=== PATIENT | female | born 1990 | race Caucasian/White ===

== ENCOUNTER 2017-08-01 03:00 | Emergency (ER) | payer SELFPAY ==
[~2017-08-01] VITALS: Ht 160 cm; Wt 87.1 kg
[~2017-08-01 03:00] MED LIST: AMOX-362 PO; CEPH500C24 PO; CITA-156 PO; HYDR-4228 PO; HYDR-4309 PO; IBUP800T37 PO; LEVO25TA61 PO; LEVO50TA86 PO; PER PO; TRAZ-156 PO
--- NOTE | 2017-08-01 03:04 | ER Report ---
History and Physical Time Seen By MD: 03:04 HPI/ROS CHIEF COMPLAINT: Fever, cough, difficulty breathing HISTORY OF PRESENT ILLNESS: 27-year-old female presents ambulatory to the ER complaining of difficulty breathing. She's been sick for 3 days now. She's been having a deep dry cough. She denies any sputum production. She has no ear pain. She's had some nausea but no vomiting. She notes some fevers. She tried a beat her own inhaler without improvement. REVIEW OF SYSTEMS: Respiratory: As above Cardiovascular: No chest pain, no palpitations. Gastrointestinal: No vomiting, no abdominal pain. Musculoskeletal: No back pain. Allergies: Coded Allergies: No Known Drug Allergies (Unverified , 07/05/16) Home Meds Active Scripts Albuterol Sulfate 90 Mcg/Act (PROAIR HFA 90 MCG/ACT) 8.5 Gm Hfa.aer.ad, 2 PUFF IH Q4-6H Y for asthma symptoms, #1 INHALER Prov:JU MARIE DO 08/01/17 Oxycodone Hcl/Acetaminophen (PERCOCET 5-325 MG TABLET) 1 Each Tablet, 1 EACH PO Q4-6H Y for reduce pain or suppress cough, #10 Prov:JU MARIE DO 08/01/17 Promethazine Hcl (PROMETHAZINE HCL) 25 Mg Tablet, 25 MG PO Q8H Y for reduce nausea and cough, #10 TAB Prov:JU MARIE DO 08/01/17 Reported Medications Citalopram Hydrobromide (CELEXA) 20 Mg Tablet, 20 MG PO QDAY, #5 TAB 03/28/16 Levothyroxine Sodium (LEVOTHYROXINE SODIUM) 50 Mcg Tablet, 75 MCG PO QDAY, TAB 03/28/16 Discontinued Reported Medications Trazodone Hcl (TRAZODONE HCL) 50 Mg Tablet, 50 MG PO QHS 03/28/16 Reviewed Nurses Notes: Yes Old Medical Records Reviewed: Yes Hx Smoking: Yes Smoking Status: Current: Every Day Smoker, Heavy Tobacco Smoker Exposure to Second Hand Smoke?: No Hx Substance Use Disorder: No Hx Alcohol Use: Yes (sober x 1year) Constitutional Vital Sign - Last 24 Hours 08/01/17 08/01/17 08/01/17 08/01/17 03:00 03:05 03:05 03:30 Temp 99.2 Pulse ??? 86 81 Resp 84 B/P (MAP) 101/72 (82) 94/83 (87) Pulse Ox 95 98 08/01/17 08/01/17 08/01/17 08/01/17 03:40 03:40 03:44 04:00 Pulse 77 78 77 Resp 18 18 B/P (MAP) 101/65 (77) Pulse Ox 98 96 O2 Delivery Room Air 08/01/17 04:30 Pulse 65 B/P (MAP) 100/65 (77) Pulse Ox 96 Physical Exam Vital signs stable, low-grade fever 99.2., pulse ox normal General Appearance: The patient is alert, has no immediate need for airway protection and no current signs of toxicity. Mild distress HEENT: Pupils equal and round no injection. TMs normal, oropharynx with moderate erythema, no exudate or petechiae, Respiratory: Chest is non tender, lungs are clear to auscultation. Faint extra [place], wheezing, no Rales Cardiac: regular rate and rhythm Gastrointestinal: Abdomen is soft and non tender, no masses, bowel sounds normal. Musculoskeletal: Neck: Neck is supple and non tender. No lymphadenopathy, no meningismus Extremities have full range of motion and are non tender. Skin: No rashes or lesions. DIFFERENTIAL DIAGNOSIS: After history and physical exam differential diagnosis was considered for adult fever including but not limited to viral syndromes including influenza, urinary tract infection, rhonchi this, sinus infection, otitis media, asthma exacerbation, pneumonia and sepsis. Medical Decision Making Data Points Laboratory Hematology Test 08/01/17 03:30 Influenza Virus Type A (PCR) Negative (NEGATIVE) Influenza Virus Type B (PCR) Negative (NEGATIVE) Chemistry Test 08/01/17 03:30 Influenza Virus Type A (PCR) Negative (NEGATIVE) Influenza Virus Type B (PCR) Negative (NEGATIVE) ED Course/Re-evaluation ED Course Patient was admitted to an examination room. H&P was done. The differential diagnoses was considered. On clinical examination. Patient has mild extremity wheezing. She received an albuterol nebulizer treatment. She reports improve of her breathing. She is treated with Decadron 8 mg by mouth. She's given medication for symptomatically management Percocet to suppress her cough, and Phenergan to dry up her cough. She is advised to follow-up with her primary care if unimproved in 3-5 days. Decision to Disposition Date: Aug 01, 2017 Decision to Disposition Time: 04:33 Depart Departure Latest Vital Signs Vital Signs Date Time Temp Pulse Resp B/P (MAP) Pulse Ox O2 Delivery O2 Flow Rate FiO2 08/01/17 04:30 65 100/65 (77) 96 08/01/17 03:44 18 08/01/17 03:40 Room Air 08/01/17 03:05 99.2 Impression: Primary Impression: Viral URI Additional Impression: Mild asthma exacerbation Condition: Improved Disposition: HOME OR SELF-CARE New Scripts Albuterol Sulfate 90 Mcg/Act (PROAIR HFA 90 MCG/ACT) 8.5 Gm Hfa.aer.ad 2 PUFF IH Q4-6H Y for asthma symptoms, #1 INHALER Prov: JU MARIE DO 08/01/17 Oxycodone Hcl/Acetaminophen (PERCOCET 5-325 MG TABLET) 1 Each Tablet 1 EACH PO Q4-6H Y for reduce pain or suppress cough, #10 Prov: JU MARIE DO 08/01/17 Promethazine Hcl (PROMETHAZINE HCL) 25 Mg Tablet 25 MG PO Q8H Y for reduce nausea and cough, #10 TAB Prov: JU MARIE DO 08/01/17 Patient Instructions: Upper Respiratory Infection (ED) Additional Instructions: Use DayQuil and NyQuil as needed for symptom relief Follow-up with your primary care if unimproved in 3-5 days. Problem Qualifiers JU MARIE DO Aug 01, 2017 03:04
[2017-08-01] MEDS ORDERED: ALBUTEROL 2.5 MG/3 ML NEB NEB ONE (03:20)
[2017-08-01 04:30] VITALS: BP 100/65
[2017-08-01] MEDS ORDERED: OXYC-865 PO (04:35)
[2017-08-01] MEDS ORDERED: PROM-110 PO (04:35)
[2017-08-01] MEDS ORDERED: ALBU8.5H IH (04:38)
[2017-08-01] MEDS ORDERED: PROMETHAZINE HCL 25 MG TAB TH 2 TAB/BOTTLE PO ONE (04:40)
[2017-08-01] MEDS ORDERED: DEXAMETHASONE 4 MG TAB PO ONE (04:40)
[2017-08-01] MEDS ORDERED: oxyCODONE/ACETAMIN 5/325MG TH 2 TAB/BOTTLE PO ONE (04:40)
== END 2017-08-01 04:47 | disposition home or self-care (01) ==
LOC: ER 03:01
DX: J06.9 Acute upper respiratory infection, unspecified (principal); J45.901 Unspecified asthma with (acute) exacerbation
CPT/HCPCS: 87502; 94640; 99282; J7613; J8540

== ENCOUNTER → 2018-03-26 | Outpatient (REF) ==
[~2018-03-26] MED LIST changes: +ALBU8.5H IH; +OXYC-865 PO; +PROM-110 PO; -TRAZ-156 PO; +TRAZ50TA34 PO
--- NOTE | 2018-03-26 15:59 | RADIOLOGY IMAGING REPORT ---
FACILITY: [facility] - [place], [place] PATIENT NAME: Inna Dillon : 1990 MR: [id number]: [id number] EXAM DATE: [id number] ORDERING PHYSICIAN: JOAO VERNON TECHNOLOGIST: Location: [facility] - [place], [place] Patient: Inna Dillon : 1990 Visit/Account:[id number] Date of Sevice: 03/26/2018 Exam type: LUMBAR SPINE 2 OR 3 VIEW History: Low back pain, leg pain Comparison: None. Findings: There are five nonrib-bearing lumbar-type vertebral bodies present. There is no evidence of acute fr actures. There suggestion of pars defects at L5 although oblique views were not obtained. There sug gestion of mild disc space narrowing at T11-12 and T12-L1. There is dense sclerosis along the inferior aspect the left SI joint this could be related to prior t rauma, infectious etiologies such as pyogenic septic arthritis, tuberculosis, brucellosis less likely neoplastic process. Sacroiliitis seems less likely due to the unilateral nature although not totall y excluded IMPRESSION: 1. There suggestion of bilateral pars defects at L5 although not ideally characterized due to the la ck of oblique views There is unilateral sclerosis along the inferior aspect of the left SI joint please see above discuss ion Report Dictated By: Little Velasco MD at 03/26/2018 3:48 PM Report E-Signed By: Little Velasco MD at 03/26/2018 3:55 PM WSN:[email or web address]
== END ==
LOC: RAD 14:59
PROVIDERS: ATTEND Orthopaedic Surgery Orthopaedic Surgery of the Spine
DX: M54.5 Low back pain (principal)
CPT/HCPCS: 72100

== ENCOUNTER → 2018-06-19 | Outpatient (REF) ==
[~2018-06-19] MED LIST changes: -HYDR-4309 PO; +HYDR-653 PO
--- NOTE | 2018-06-19 16:00 | RADIOLOGY IMAGING REPORT ---
FACILITY: [facility] [place]IENT NAME: Inna Dillon : 1990 MR: [id number] V: [id number] EXAM DATE: ORDERING PHYSICIAN: CHETAN ROSARIO TECHNOLOGIST: Location: [facility] - [place] Patient: Inna Dillon : 1990 Visit/Account:[id number] Date of Sevice: 06/19/2018 Exam type: WRIST RIGHT 2 VIEW History: Right wrist pain, no known injury Comparison: None. Findings: Two views of the right breast were submitted. On the lateral view there appears to be mild degenerat kali changes involving the carpal metacarpal articulations although not as well appreciated on the PA view. No gross evidence of acute fracture or dislocation. The radiocarpal joint appears preserved. IMPRESSION: 1. On the lateral view there appears be mild degenerative changes involving the carpal metacarpal ar ticulations although not well appreciated on the PA view there for the exact location is somewhat dif ficult. If patient's symptoms persist an oblique view of the right wrist or cross-sectional imaging may be helpful Report Dictated By: Little Velasco MD at 06/19/2018 3:53 PM Report E-Signed By: Little Velasco MD at 06/19/2018 3:56 PM WSN:[email or web address]
== END ==
LOC: RAD 14:02
PROVIDERS: ATTEND Nurse Practitioner
DX: M25.531 Pain in right wrist (principal)

== ENCOUNTER 2018-07-09 10:54 | Emergency (ER) | payer SELFPAY ==
[2018-07-09] MEDS ORDERED: CLON-333 PO (11:18)
[2018-07-09] MEDS ORDERED: TRAZ50TA34 PO (11:18)
--- NOTE | 2018-07-09 11:18 | ER Report ---
History and Physical Time Seen By MD: 11:18 Hx. of Stated Complaint: PATIENT REPORTS THAT SHE AND HER BOYFRIEND WERE HAVING ANAL INTERCOURSE LAST WEEK. SHE IS NOW REPORTING RECTAL PAIN AND SOME BLEEDING WHEN SHE USES TOILET PAPER HPI/ROS Had anal intercourse one week ago without lubrication. Pain in her buttocks/anus since. Has had anal intercourse previously. Remainder of the 14 system rev: Yes Allergies: Coded Allergies: No Known Drug Allergies (Unverified , 07/05/16) Home Meds Reported Medications Trazodone Hcl (TRAZODONE HCL) 50 Mg Tablet, 50 MG PO QHS 07/09/18 Clonazepam (CLONAZEPAM) 1 Mg Tablet, 1 MG PO QDAY, #6 TAB 07/09/18 Citalopram Hydrobromide (CELEXA) 20 Mg Tablet, 20 MG PO QDAY, #5 TAB 03/28/16 Levothyroxine Sodium (LEVOTHYROXINE SODIUM) 50 Mcg Tablet, 100 MCG PO QDAY, TAB 03/28/16 Discontinued Scripts Albuterol Sulfate 90 Mcg/Act (PROAIR HFA 90 MCG/ACT) 8.5 Gm Hfa.aer.ad, 2 PUFF IH Q4-6H PRN for asthma symptoms, #1 INHALER Prov:JU MARIE Johnny DO 08/01/17 Oxycodone Hcl/Acetaminophen (PERCOCET 5-325 MG TABLET) 1 Each Tablet, 1 EACH PO Q4-6H PRN for reduce pain or suppress cough, #10 Prov:QUIQUE MARIECarson Turner DO 08/01/17 Promethazine Hcl (PROMETHAZINE HCL) 25 Mg Tablet, 25 MG PO Q8H PRN for reduce nausea and cough, #10 TAB Prov:JU MARIE Johnny DO 08/01/17 Reviewed Nurses Notes: Yes Old Medical Records Reviewed: Yes Hx Smoking: Yes Smoking Status: Current: Every Day Smoker, Heavy Tobacco Smoker Exposure to Second Hand Smoke?: No Hx Substance Use Disorder: No Hx Alcohol Use: Yes (sober x 1year) Constitutional Vital Sign - Last 24 Hours 07/09/18 11:12 Temp 97.9 Pulse 82 Resp 20 B/P (MAP) 111/73 Pulse Ox 94 O2 Delivery Room Air Physical Exam General Appearance: The patient is alert, has no immediate need for airway protection and no current signs of toxicity. Gastrointestinal: Abdomen is soft and non tender, no masses, bowel sounds normal. Skin: No rashes or lesions. Rectal: folliculitis, no tears or hemorrhoids, no prolapse Medical Decision Making ED Course/Re-evaluation ED Course Cellulitis after having anal intercourse without lubrication one week ago. No tears or prolapse. No evidence of STD. Will give abx and PCM follow up. Decision to Disposition Date: Jul 09, 2018 Decision to Disposition Time: 11:55 Depart Departure Latest Vital Signs Vital Signs Date Time Temp Pulse Resp B/P (MAP) Pulse Ox O2 Delivery O2 Flow Rate FiO2 07/09/18 11:12 97.9 82 20 111/73 94 Room Air Impression: Primary Impression: Cellulitis Condition: Improved Disposition: HOME OR SELF-CARE New Scripts Cephalexin 500 Mg Tab (KEFLEX 500 MG TAB) 500 Mg Tablet 500 MG PO Q12H for 7 Days, #14 TAB Prov: ANNI ROSA MD 07/09/18 Sulfamethoxazole/Trimet 800-160 Mg Tab (BACTRIM DS TABLET) 1 Each Tablet 1 TAB PO Q12H for 7 Days, #14 TAB Prov: ANNI ROSA MD 07/09/18 Patient Instructions: Cellulitis (ED) Problem Qualifiers Primary Impression: Cellulitis Site of cellulitis: buttock Qualified Codes: L03.317 - Cellulitis of buttock ANNI ROSA MD Jul 09, 2018 11:18
[2018-07-09] MEDS ORDERED: CEPHALEXIN MONO 500 MG CAP PO ONE (11:30)
[2018-07-09] MEDS ORDERED: TRIMETH/SULFA DS 160-800MG TAB PO ONE (11:30)
[2018-07-09] MEDS ORDERED: CEPH500T7 PO (11:57)
[2018-07-09] MEDS ORDERED: SULF-198 PO (11:57)
[2018-07-09 12:04] VITALS: BP 116/79
== END 2018-07-09 12:05 | disposition home or self-care (01) ==
LOC: ER 11:19
DX: L03.317 Cellulitis of buttock (principal)
CPT/HCPCS: 99283

== ENCOUNTER 2018-11-30 16:03 | Emergency (ER) | payer MEDICAID ==
[~2018-11-30 16:03] MED LIST changes: +CEPH500T7 PO; +CLON-333 PO; +SULF-198 PO
[2018-11-30] MEDS ORDERED: RANI-366 PO (16:16)
[2018-11-30 16:30] VITALS: BP 101/63
--- NOTE | 2018-11-30 16:43 | ER Report ---
History and Physical Time Seen By MD: 16:20 Hx. of Stated Complaint: insect bite HPI/ROS CHIEF COMPLAINT: Leg swelling and pain HISTORY OF PRESENT ILLNESS: 28-year-old female at 19 weeks presents with sudden onset of focal swelling to her right proximal lateral calf. Patient states she was reaching up on cupboards, on step stool when she felt like she was bitten or provoked by something and developed sudden pain, itching, s welling. She did not notice any insect, does not think she bumped her leg against anything, does not note any injury, and has not had any similar issues. She now notes swelling and pain that has been approximately the same size of the started just before arrival. Patient has no family history of VT E, has not had any swelling in lower extremities, chest pain, trouble breathing. Of note, over the last few days she has developed intermittent paresthesias in the right lower extremity that her OB states is associated with . Patient has not had dysuria, no bleeding or history of significant bruising REVIEW OF SYSTEMS: Respiratory: No cough, no dyspnea. Cardiovascular: No chest pain, no palpitations. Gastrointestinal: No vomiting, no abdominal pain. Musculoskeletal: No back pain. Remainder of the 14 system rev: Yes Allergies: Coded Allergies: sulfamethoxazole (Verified Allergy, Intermediate, rash, 11/30/18) trimethoprim (Verified Allergy, Intermediate, rash, 11/30/18) Home Meds Reported Medications Ranitidine Hcl (ZANTAC) 150 Mg Tablet, 150 MG PO BID, TAB 11/30/18 Levothyroxine Sodium (LEVOTHYROXINE SODIUM) 50 Mcg Tablet, 100 MCG PO QDAY, TAB 03/28/16 Discontinued Reported Medications Trazodone Hcl (TRAZODONE HCL) 50 Mg Tablet, 50 MG PO QHS 07/09/18 Clonazepam (CLONAZEPAM) 1 Mg Tablet, 1 MG PO QDAY, #6 TAB 07/09/18 Citalopram Hydrobromide (CELEXA) 20 Mg Tablet, 20 MG PO QDAY, #5 TAB 03/28/16 Discontinued Scripts Cephalexin 500 Mg Tab (KEFLEX 500 MG TAB) 500 Mg Tablet, 500 MG PO Q12H for 7 Days, #14 TAB Prov:ANNI ROSA MD 07/09/18 Sulfamethoxazole/Trimet 800-160 Mg Tab (BACTRIM DS TABLET) 1 Each Tablet, 1 TAB PO Q12H for 7 Days, #14 TAB Prov:ANNI ROAS MD 07/09/18 Reviewed Nurses Notes: Yes Hx Smoking: Yes Smoking Status: Current: Every Day Smoker, Heavy Tobacco Smoker Exposure to Second Hand Smoke?: No Hx Substance Use Disorder: No Hx Alcohol Use: Yes (sober x 1year) Constitutional Vital Sign - Last 24 Hours 11/30/18 16:12 Temp 98.3 Pulse 98 Resp 16 B/P (MAP) 120/73 Pulse Ox 95 Physical Exam General Appearance: The patient is alert, has no immediate need for airway protection and no current signs of toxicity. Eyes: Pupils equal and round no injection. Respiratory: Chest is non tender, lungs are clear to auscultation. Cardiac: regular rate and rhythm Musculoskeletal: Extremities have full range of motion and are non tender. Skin: 5cm round area of central ecchymosis without bite tammie, surrounding by ring of erythema. Tender but not fluctuant, located just inferiolateral to the proximal insertion of gastroc tendon. Tendon intact though with ttp. DIFFERENTIAL DIAGNOSIS: After history and physical exam differential diagnosis was considered for arthropod/arachnid/insect bite, infection, abscess, contusion, muscle tear, dvt, or other emergent etiology of symptoms. Medical Decision Making ED Course/Re-evaluation ED Course 28 f presents with sudden onset of pain that she felt may have been insect bite, however on further questioning she did not see any insect, and does not have evidence of bite watson or punctate lesion. Her findings are most c/w partial tendon/muscle tear and hematoma, and occured while she was standing on tiptoes and reaching up to cupboard. US ordered to r/o dvt as cause of symptoms as well; US shows no DVT; notes fluid at area of exam findings, that would be c/w hematoma and given clinical findings most c/w muscle tear as above. Will d/c with very strict rtn precautiosn and supportive treatment. On re-exam the area of concern is much improved without surrounding erythema and with decreased tense-ness of the ecchymotic central area. Decision to Disposition Date: November 30, 2018 Decision to Disposition Time: 17:10 Depart Departure Latest Vital Signs Vital Signs Date Time Temp Pulse Resp B/P (MAP) Pulse Ox O2 Delivery O2 Flow Rate FiO2 11/30/18 16:12 98.3 98 16 120/73 95 Impression: Primary Impression: Contusion Condition: Improved Disposition: HOME OR SELF-CARE Additional Instructions: As we discussed, at this time your findings are most consistent with a partial muscle tear that will heal on it's own. I recommend tylenol as needed, ice 20 minutes at a time. Please return immediately for uncontrolled pain, increased swelling, expanding redness, or any concerns. Please follow up with your primary doctor in 3-5 days for re-evaluation. Problem Qualifiers Primary Impression: Contusion Encounter type: initial encounter Contusion area: lower leg Laterality: right Qualified Codes: S80.11XA - Contusion of right lower leg, initial encounter HARRY ROSA MD November 30, 2018 16:43
--- NOTE | 2018-11-30 17:55 | RADIOLOGY IMAGING REPORT ---
FACILITY: [facility] PATIENT NAME: Inna Chaves : 1990 MR: [id number] V: [id number] EXAM DATE: ORDERING PHYSICIAN: HARRY ROSA TECHNOLOGIST: Location: [facility] Patient: Inna Chaves : 1990 Visit/Account:[id number] Date of Sevice: 11/30/2018 US VENOUS LOWER EXT RT HISTORY: r prox calf hematoma, ttp, 19 wks , leg swelling COMPARISON: None. FINDINGS: Grayscale, duplex and color Doppler interrogation of the right lower extremity deep veins from common femoral vein to proximal calf was completed. The greater saphenous vein in the proximal thigh was ev aluated using similar technique. Common femoral vein - Negative. Femoral vein - Negative. Deep femoral vein - Negative. Popliteal vein - Negative. Visualized deep calf veins - Negative. Popliteal fossa: Negative. Greater saphenous vein in the proximal thigh: Negative. IMPRESSION: Negative right lower extremity venous ultrasound Report Dictated By: Pilo Lopez at 11/30/2018 5:49 PM Report E-Signed By: Pilo Lopez at 11/30/2018 5:50 PM WSN:[email or web address]
== END 2018-11-30 17:30 | disposition home or self-care (01) ==
LOC: ER 16:27
DX: S80.11XA Contusion of right lower leg, initial encounter (principal)
CPT/HCPCS: 99284

== ENCOUNTER 2019-02-02 13:23 | Emergency (ER) | payer MEDICAID ==
[~2019-02-02] VITALS: Ht 165.1 cm; Wt 98.9 kg
--- NOTE | 2019-02-02 13:28 | NUR ---
EXTERNAL MONITOR APPLIED. ABD SOFT PER PALPATION. PT STATES MILD CRAMPING TO LOW ABDOMEN. RATES PAIN A 3/10.
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
[2019-02-02 13:42] LABS: PLATELET COUNT, AUTOMATED 213 K/uL (150-450)
--- NOTE | 2019-02-02 13:45 | NUR ---
DENIES CRAMPING NOW STATING "IT WENT AWAY".
--- NOTE | 2019-02-02 13:49 | NUR ---
EXTERNAL US - FHR 140 MODERATE VARIABILITY; ACCELS 15X15; VAIABLE X 1 NOTED; CAT II STRIP; EXTERNAL TOCO - NO CONTRACTIONS NOTED
--- NOTE | 2019-02-02 14:01 | NUR ---
Reactive NST. ER staff to clear pt and then transfer pt to L&D for cont monitoring. EFM remains on pt. Lucía HENDERSON to notify RN for any changes.
[2019-02-02 15:30] VITALS: BP 110/61; Ht 165.1 cm; Wt 98.9 kg
== END 2019-02-02 15:07 | disposition home or self-care (01) ==
LOC: ER 13:28 → UNDOADMIN 15:21 → OB 15:21 → UNDODISIN 18:25
DX: O26.893 Other specified pregnancy related conditions, third trimester (principal); S60.222A Contusion of left hand, initial encounter; V89.2XXA Person injured in unspecified motor-vehicle accident, traffic, initial encounter; Z3A.28 28 weeks gestation of pregnancy
CPT/HCPCS: 59025; 81001; 82040; 82247; 82310; 82374; 82435; 82565; 82947; 84075; 84132; 84155; 84295; 84450; 84460; 84520; 85025; 85460; 86900; 86901; 99282

== ENCOUNTER → 2019-02-02 | Outpatient (CLI) | payer MEDICAID ==
[~2019-02-02] MED LIST changes: +RANI-54 PO; -TRAZ50TA34 PO; +TRAZ50TA52 PO
[2019-02-02 15:30] VITALS: BMI 36.3
== END ==
LOC: AMB 13:07
PROVIDERS: ATTEND Nurse Practitioner
DX: R10.9 Unspecified abdominal pain (principal); M79.641 Pain in right hand; Z34.92 Encounter for supervision of normal pregnancy, unspecified, second trimester
CPT/HCPCS: A0425; A0429